=== PATIENT | male | born 2000 | race Caucasian/White ===

== ENCOUNTER 2023-06-16 19:11 | Emergency (ER) | payer BC, SELFPAY ==
[2023-06-16 19:17] VITALS: BP 149/81; PULSE 68; RESP 20; TEMP 37.2; O2SAT 99; BMI 22.4
--- NOTE | 2023-06-16 19:33 | ED.EYEPROB ---
HPI - Eye Problem General Chief complaint: Eye Problems Stated complaint: eye pain Time Seen by Provider: 06/16/23 19:16 History of Present Illness HPI Narrative: This 23-year-old male comes in with bilateral eye pain that began this afternoon. 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 He was not wearing eye protection. He states that he felt some discomfort afterwards but went home to take a nap and upon awakening from the nap he has severe pain bilaterally. He does not know of any foreign object that got into his eyes but states that it feels like there is metal poking into his eyes. Related Data Home Medications Medication Instructions Recorded Confirmed No Known Home Medications 06/16/23 06/16/23 Allergies Allergy/AdvReac Type Severity Reaction Status Date / Time No Known Drug Allergies Allergy Verified 06/16/23 19:21 Review of Systems Status of ROS: Reports: 10 or more systems reviewed and unremarkable except as noted in History and below Narrative: Constitutional: No fevers, no weight gain or loss. Eyes: Bilateral eye pain with erythema and excessive tearing. HENT: No congestion, no sore throat, no ear pain. Cardiovascular: No chest pain, no palpitations. Respiratory: No shortness of breath, no wheezes, no cough. Gastrointestinal: No abdominal pain, no vomiting, no diarrhea. Genitourinary: No dysuria, no hematuria. Musculoskeletal: Normal range of motion. Skin: No rashes, no pruritis. Neurological: No dizziness, weakness, sensory change, speech change. Endo/Heme/Allergies: No bruising or bleeding. No polydipsia. Pysch: no suicidality, no anxiety, no insomnia. All other systems reviewed and are negative. Exam Narrative: Exam Narrative: Constitutional: Well-developed, well-nourished, no acute distress. HEENT: Normocephalic, atraumatic. Bilateral eye redness and pain with tearing. Neck: Normal range of motion. Nontender. Supple. Heart: Intact distal pulses. Lungs: No chest discomfort. No wheezes, rhonchi, or rales. Abdomen: Nontender. Back: Normal range of motion. Extremities: Normal range of motion. No injury. Skin: Intact. No rash. Warm. No erythema or pallor. Neurologic: No altered sensation. No weakness. Alert and oriented. Psychiatric: No suicidality. No anxiety or depression. No insomnia. Nursing notes and vitals signs are reviewed. Const: Vital Signs, click to edit/add: Vital Signs - 24 hr 06/16/23 19:17 Temperature 99.0 F Pulse Rate [Right Pulse Oximeter] 68 Respiratory Rate 20 Blood Pressure [Ri ght Upper Arm] 149/81 H Pulse Oximetry 99 Oxygen Delivery Me thod Room Air Course Vital Signs Vital signs: Initial Vital Signs Temperature 99.0 F 06/16/23 19:17 Temperature Source Temporal Artery Scan 06/16/23 19:17 Pulse Rate 68 06/16/23 19:17 Respiratory Rate 20 06/16/23 19:17 Blood Pressure 149/81 H 06/16/23 19:17 Blood Pressure Mean 103 06/16/23 19:17 Blood Pressure Position Sitting 06/16/23 19:17 Pulse Oximetry 99 06/16/23 19:17 Oxygen Delivery Method Room Air 06/16/23 19:17 Vital Signs Temperature 99.0 F 06/16/23 19:17 Pulse Rate 68 06/16/23 19:17 Respiratory Rate 20 06/16/23 19:17 Blood Pressure 149/81 H 06/16/23 19:17 Pulse Oximetry 99 06/16/23 19:17 Oxygen Delivery Method Room Air 06/16/23 19:17 Temperature 99.0 F 06/16/23 19:17 Pulse Rate 68 06/16/23 19:17 Respiratory Rate 20 06/16/23 19:17 Blood Pressure 149/81 H 06/16/23 19:17 Pulse Oximetry 99 06/16/23 19:17 Oxygen Delivery Method Room Air 06/16/23 19:17 MDM - Eye Problem MDM Narrative Medical decision making narrative: This patient has bilateral eye pain from welding arc exposure. His eye exam is normal. There is no sign of any foreign object or injury otherwise to his eyes bilaterally. The patient received flurbiprofen ophthalmic solution and prescription for [place]. I advised him to use a good quality moist arising eye lubricant also. Discharge Plan Discharge Clinical Impression: Exposure to welding arc Patient Disposition: Home w/ Parent or Adult Condition: Unchanged Additional Instructions: Use medications as prescribed and needed. Also use a high-quality moisturising eye lubricant frequently. Follow up with MD return if worsening. Prescriptions: No Action No Known Home Medications Stand Alone Forms: [employer] Info Instructions
[2023-06-16 19:42] VITALS: BP 149/81; PULSE 70; RESP 20; TEMP 37.2; O2SAT 99
== END 2023-06-16 19:48 | disposition home or self-care (01) ==
PROVIDERS: Emergency Provider Emergency Medicine Emergency Medical Services
DX: H57.13 Ocular pain, bilateral (principal)
CPT/HCPCS: 99283; 99284; A9270

== ENCOUNTER 2023-11-15 17:39 | Emergency (ER) | payer BC, SELFPAY ==
[2023-11-15 17:48] VITALS: BP 136/84; PULSE 84; RESP 18; TEMP 38.1; O2SAT 99; BMI 21.7
--- NOTE | 2023-11-15 17:52 | ED_ITS ---
HPI - General Adult General Time Seen by Provider: 18:00 <Samantha Cai MD - Last Filed: 11/15/23 18:00> Date Seen: 11/15/23 <Solomon García MD - Last Filed: 11/15/23 17:53> Chief complaint: Extremity Pain/Injury, Upper <Solomon García MD - Last Filed: 11/15/23 17:53> Stated complaint: R ring finger infection/re/swoll-trauma 7 days ago <Solomon García MD - Last Filed: 11/15/23 17:53> Time Seen by Provider: 11/15/23 17:51 <Solomon García MD - Last Filed: 11/15/23 17:53> Source: patient <Samantha Cai MD - Last Filed: 11/15/23 18:00> Mode of arrival: ambulatory <Samantha Cai MD - Last Filed: 11/15/23 18:00> Limitations: no limitations <Samantha Cai MD - Last Filed: 11/15/23 18:00> Related Data Home medications: Home Medications Medication Instructions Recorded Confirmed No Known Home Medications 06/16/23 11/15/23 <Solomon García MD - Last Filed: 11/15/23 17:53> Allergies/adverse reactions: Allergies Allergy/AdvReac Type Severity Reaction Status Date / Time No Known Drug Allergies Allergy Verified 11/15/23 17:48 <Solomon García MD - Last Filed: 11/15/23 17:53> [facility] Medical History: Medical History (Updated 07/01/23 @ 00:01 by Dianne Nathan) No significant past medical history <Solomon García MD - Last Filed: 11/15/23 17:53> Surgical History: Surgical History (Updated 06/16/23 @ 19:41 by Buck Covarrubias RN) No significant past surgical history <Solomon García MD - Last Filed: 11/15/23 17:53> Social History: Social History Smoking Status: Never smoker Second hand tobacco smoke exposure: No How often do you have a drink containing alcohol: never AUDIT-C Alcohol total score: 0 Non-prescribed substance use: denies use <Solomon García MD - Last Filed: 11/15/23 17:53> Exam Const: Vital Signs, click to edit/add: Vital Signs - 24 hr 11/15/23 17:48 Temperature 100.5 F H Pulse Rate [Pulse Oximeter] 84 Respiratory Rate 18 Blood Pressure [Ri ght Upper Arm] 136/84 Pulse Oximetry 99 Oxygen Delivery Me thod Room Air <Solomon García MD - Last Filed: 11/15/23 17:53> Vital Signs, click to edit/add: Vital Signs - 24 hr 11/15/23 17:48 Temperature 100.5 F H Pulse Rate [Pulse Oximeter] 84 Respiratory Rate 18 Blood Pressure [Ri ght Upper Arm] 136/84 Pulse Oximetry 99 Oxygen Delivery Me thod Room Air <Samantha Cai MD - Last Filed: 11/15/23 18:00> Course Vital Signs Vital signs: Initial Vital Signs Temperature 100.5 F H 11/15/23 17:48 Temperature Source Temporal Artery Scan 11/15/23 17:48 Pulse Rate 84 11/15/23 17:48 Respiratory Rate 18 11/15/23 17:48 Blood Pressure 136/84 11/15/23 17:48 Blood Pressure Mean 101 11/15/23 17:48 Blood Pressure Position Sitting 11/15/23 17:48 Pulse Oximetry 99 11/15/23 17:48 Oxygen Delivery Method Room Air 11/15/23 17:48 Vital Signs Temperature 100.5 F H 11/15/23 17:48 Pulse Rate 84 11/15/23 17:48 Respiratory Rate 18 11/15/23 17:48 Blood Pressure 136/84 11/15/23 17:48 Pulse Oximetry 99 11/15/23 17:48 Oxygen Delivery Method Room Air 11/15/23 17:48 Temperature 100.5 F H 11/15/23 17:48 Pulse Rate 84 11/15/23 17:48 Respiratory Rate 18 11/15/23 17:48 Blood Pressure 136/84 11/15/23 17:48 Pulse Oximetry 99 11/15/23 17:48 Oxygen Delivery Method Room Air 11/15/23 17:48 <Solomon García MD - Last Filed: 11/15/23 17:53> Initial Vital Signs Temperature 100.5 F H 11/15/23 17:48 Temperature Source Temporal Artery Scan 11/15/23 17:48 Pulse Rate 84 11/15/23 17:48 Respiratory Rate 18 11/15/23 17:48 Blood Pressure 136/84 11/15/23 17:48 Blood Pressure Mean 101 11/15/23 17:48 Blood Pressure Position Sitting 11/15/23 17:48 Pulse Oximetry 99 11/15/23 17:48 Oxygen Delivery Method Room Air 11/15/23 17:48 Vital Signs Temperature 100.5 F H 11/15/23 17:48 Pulse Rate 84 11/15/23 17:48 Respiratory Rate 18 11/15/23 17:48 Blood Pressure 136/84 11/15/23 17:48 Pulse Oximetry 99 11/15/23 17:48 Oxygen Delivery Method Room Air 11/15/23 17:48 Temperature 100.5 F H 11/15/23 17:48 Pulse Rate 84 11/15/23 17:48 Respiratory Rate 18 11/15/23 17:48 Blood Pressure 136/84 11/15/23 17:48 Pulse Oximetry 99 11/15/23 17:48 Oxygen Delivery Method Room Air 11/15/23 17:48 <Samantha Cai MD - Last Filed: 11/15/23 18:00> Discharge Plan Discharge Prescriptions: No Action No Known Home Medications <Solomon García MD - Last Filed: 11/15/23 17:53> Follow Up/Referrals: Provider,Not a Local [Primary Care Provider] - <Solomon García MD - Last Filed: 11/15/23 17:53>
--- NOTE | 2023-11-15 18:08 | ED.GENADULT ---
HPI - General Adult General Date Seen: 11/15/23 Chief complaint: Extremity Pain/Injury, Upper Stated complaint: R ring finger infection/re/swoll-trauma 7 days ago Time Seen by Provider: 11/15/23 17:51 History of Present Illness HPI narrative: This is a generally healthy 23-year-old male. He has no significant past medical history. He is up-to-date on his tetanus shot. He injured his right hand, 4th digit about a week ago. 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 It was pinched between objects. He has no concerned that there is any broken glass, within slivers, or other foreign bodies and his fingers. He suffered a wound to the ulnar side of the proximal phalanges of his 4th digit. He has been trying to keep the wound clean and covered with carpal casted. He has been wearing gloves at work. For the past couple of days the wound started draining some yellow pus material and he has been developing redness. The redness is now sweat proximally up to the MCP joint and distally to the ulnar side of the PIP joint. He is also feeling a bit achy and has a low-grade fever today. He is concerned he is probably developing an infection No history of MRSA. No trouble moving his finger. No associated numbness or tingling. Related Data Home Medications Medication Instructions Recorded Confirmed No Known Home Medications 06/16/23 11/15/23 Allergies Allergy/AdvReac Type Severity Reaction Status Date / Time No Known Drug Allergies Allergy Verified 11/15/23 17:48 [facility] Medical History (Updated 11/15/23 @ 18:07 by Solomon García MD) No significant past medical history Surgical History (Updated 06/16/23 @ 19:41 by Buck Covarrubias RN) No significant past surgical history Social History Smoking Status: Never smoker Second hand tobacco smoke exposure: No How often do you have a drink containing alcohol: never AUDIT-C Alcohol total score: 0 Non-prescribed substance use: denies use Exam Narrative: Exam Narrative: Constitutional: Appears well-developed and well-nourished. Polite. Non-toxic appearing. HENT: Head: Atraumatic. No signs of injury. Nose: No nasal discharge. Mouth/Throat: Mucous membranes are moist. Uvula midline. Airway patent. Eyes: Conjunctivae normal and EOM are normal. Pupils are equal, round, and reactive to light. Right eye exhibits no discharge. Left eye exhibits no discharge. No icterus. Neck: Normal range of motion. Neck supple. No adenopathy. No stridor. Cardiovascular: Normal rate and regular rhythm. No murmur heard. No murmurs, rubs, or gallops. Brisk capillary refill Pulmonary/Chest: Effort normal. No stridor. No respiratory distress. No wheezes.No rhonchi. No rales. No retractions. Abdominal: Soft. Bowel sounds are normal. No distension. No mass. There is no tenderness. There is no rebound and no guarding. Musculoskeletal: Normal range of motion in his shoulder, elbow, wrist, and all digits of his right hand. In particular he has normal flexion extension of the MCP, PIP, DI P joint of the infected 4th finger. On the 4th finger there is an area of erythema that extends from the MCP joint on the dorsal aspect onto the ulnar side of the finger nearly to the ulnar side of the PIP joint. In the center of the redness, There is a roughly 5 x 8 oval shaped area of scabbing on the ulnar side of the proximal phalanx from his injury. No crepitus or signs of fracture. No crepitus to suggest necrotizing soft tissue infection. No palpable fluctuance to suggest contained abscess cavity. No tenderness along the flexor tendon sheath and there is no fusiform swelling of the finger to suggest a flexor tenosynovitis. No tenderness or redness on the dorsal aspect of the finger or hand. No signs of ascending lymphangitis. No edema. No tenderness. No deformity. Neurological: Alert. Normal strength. No cranial nerve deficit or sensory deficit. Coordination normal. GCS eye subscore is 4. GCS verbal subscore is 5. GCS motor subscore is 6. Intact radial, median, ulnar, and digital nerve (radial and ulnar) sensory function. Intact motor function in the hand. Skin: Skin is warm. No rash noted. Const: Vital Signs, click to edit/add: Vital Signs - 24 hr 11/15/23 17:48 Temperature 100.5 F H Pulse Rate [Pulse Oximeter] 84 Respiratory Rate 18 Blood Pressure [Ri ght Upper Arm] 136/84 Pulse Oximetry 99 Oxygen Delivery Me thod Room Air Course Vital Signs Vital signs: Initial Vital Signs Temperature 100.5 F H 11/15/23 17:48 Temperature Source Temporal Artery Scan 11/15/23 17:48 Pulse Rate 84 11/15/23 17:48 Respiratory Rate 18 11/15/23 17:48 Blood Pressure 136/84 11/15/23 17:48 Blood Pressure Mean 101 11/15/23 17:48 Blood Pressure Position Sitting 11/15/23 17:48 Pulse Oximetry 99 11/15/23 17:48 Oxygen Delivery Method Room Air 11/15/23 17:48 Vital Signs Temperature 100.5 F H 11/15/23 17:48 Pulse Rate 84 11/15/23 17:48 Respiratory Rate 18 11/15/23 17:48 Blood Pressure 136/84 11/15/23 17:48 Pulse Oximetry 99 11/15/23 17:48 Oxygen Delivery Method Room Air 11/15/23 17:48 Temperature 100.5 F H 11/15/23 17:48 Pulse Rate 84 11/15/23 17:48 Respiratory Rate 18 11/15/23 17:48 Blood Pressure 136/84 11/15/23 17:48 Pulse Oximetry 99 11/15/23 17:48 Oxygen Delivery Method Room Air 11/15/23 17:48 Medical Decision Making MDM Narrative Medical decision making narrative: This patient presents for evaluation of skin redness affecting his right hand 4th digit. He had injured his hand at work about a week ago and developed an infection beginning yesterday the day before.. The history, physical exam is consistent with cellulitis. There do not appear at this time to be any complication of cellulitis including abscess, necrotizing fascitis, flexor tenosynovitis, lymphangitis, lymphadenitis, osteomyelitis, sepsis, or shock. Patient is confident there is no embedded foreign bodies. Exam would suggest the absence of any associated fracture or joint injury. The patient is not immunosuppressed or diabetic. Supportive outpatient management is indicated with antibiotics. The patient is instructed to follow-up with primary care physician to ensure no progression and rapid resolution and given precautions to return if high fever, spread greater than 2.5cm outside of the marked area, worsening pain, vomiting or any other worsening. Questions answered and return precautions reviewed. Otherwise return in 3 days if not improving. Instymeds prescription for cephalexin 500 mg q.i.d. for 10 days Discharge Plan Discharge Clinical Impression: Cellulitis Patient Disposition: Home, Self-Care Condition: Stable Instructions: Cellulitis (ED) Additional Instructions: As we discussed, if you have worsening symptoms such as high fever, spreading redness more than 1 in, worsening pain, or any other problems come back to the ER right away. If your infection is not substantially improved by Sunday, come back to the ER for recheck. Please start the antibiotics this afternoon and take her 1st dose now in your 2nd dose before bed. Prescriptions: No Action No Known Home Medications Follow Up/Referrals: Provider,Not a Local [Primary Care Provider] - Stand Alone Forms: [employer] Info Instructions
== END 2023-11-15 18:30 | disposition home or self-care (01) ==
LOC: ED 18:30
PROVIDERS: Emergency Provider Emergency Medicine
DX: L03.113 Cellulitis of right upper limb (principal)
CPT/HCPCS: 99282; 99283